=== PATIENT | male | born 1970 | race Caucasian/White ===

== ENCOUNTER → 2017-06-08 | Outpatient (CLI) | payer BC ==
[~2017-06-08] VITALS: Ht 188 cm; Wt 77.2 kg
[~2017-06-08] MED LIST: Ativan PO; LOPRESSOR50 MG PO; PRINIVIL20 MG PO; PROVENTIL,2.5 MG/3 M IH; TOPROL XL100 MG PO; predniSONE PO
== END | disposition home or self-care (01) ==
LOC: OPR 07:23 → EDSTATUS 08:00
PROC: 0TB03ZX Excision of Right Kidney, Percutaneous Approach, Diagnostic (ICD-10-PCS; principal; 2017-06-08)
DX: C64.1 Malignant neoplasm of right kidney, except renal pelvis (principal); Z85.118 Personal history of other malignant neoplasm of bronchus and lung; I10 Essential (primary) hypertension; F17.200 Nicotine dependence, unspecified, uncomplicated
CPT/HCPCS: 74177; 77012; 88305; 88341 TC; 88342 TC; J3010

== ENCOUNTER 2017-07-05 21:54 | Inpatient (IN) | payer BC ==
[~2017-07-05] VITALS: Ht 188 cm; Wt 79.5 kg
[~2017-07-05 21:54] MED LIST changes: +BAYER BACK & B1 EACH PO
[2017-07-06 08:28] VITALS: BP 114/68
[2017-07-06] MEDS ORDERED: DOCUSATE SODIU100 MG PO (13:09)
[2017-07-06] MEDS ORDERED: ENDOCET 5-3251 EACH PO (13:09)
[2017-07-06 19:31] LABS: HEMATOCRIT 39.2 % (38.0-50.0); MCV 102.9 FL (86-99)
[2017-07-06 20:50] VITALS: BP 101/51
[2017-07-07] VITALS (7 sets, daily range): BP systolic 98–147; BP diastolic 50–85
[2017-07-07 05:07] LABS: MCH 35.9 PG (29.0-34.0); MCHC 34.3 G/DL (30.0-36.0); MCV 104.5 FL (86-99); MEAN PLAT.VOLUME 10.8 uM^3 (9.0-12.4); PLATELET COUNT 157 K/uL (156-360); RBC DIS.WIDTH-CV 12.4 % (11.8-14.6); RBC DIS.WIDTH-SD 47.8 % (39-53); WHITE BLOOD COUNT 11.1 K/uL (4.1-10.2)
[2017-07-07 05:23] LABS: RED BLOOD COUNT 3.54 M/uL (4.00-5.50)
[2017-07-07 05:36] LABS: ANION GAP 6 MEQ/L (2-14); CHLORIDE 102 MEQ/L (99-109); GLUCOSE 111 mg/dL (70-99); POTASSIUM 4.6 MEQ/L (3.7-5.4); SAMPLE HEMOLYSIS CHECK 0; SAMPLE ICTERIC CHECK 0; SAMPLE LIPEMIA CHECK 0; SODIUM 135 MEQ/L (136-147); UREA NITROGEN (BUN) 11 mg/dL (9-23)
[2017-07-07 05:40] LABS: GFR ESTIMATE (CALCULATED) 58 mL/min/
[2017-07-08 05:08] VITALS: BP 179/83
[2017-07-08 07:54] LABS: ANION GAP 9 MEQ/L (2-14); CHLORIDE 104 MEQ/L (99-109); GFR ESTIMATE (CALCULATED) > 59 mL/min/; GLUCOSE 98 mg/dL (70-99); POTASSIUM 4.1 MEQ/L (3.7-5.4); SAMPLE HEMOLYSIS CHECK 0; SAMPLE ICTERIC CHECK 0; SAMPLE LIPEMIA CHECK 0; SODIUM 139 MEQ/L (136-147); UREA NITROGEN (BUN) 8 mg/dL (9-23)
[2017-07-08] MEDS ORDERED: LISINOPRIL10 MG PO (07:58)
[2017-07-08] MEDS ORDERED: TAMSULOSIN HCL0.4 MG PO (07:58)
[2017-07-08 08:00] VITALS: BP 158/78
[2017-07-08 12:33] VITALS: BP 177/95
[2017-07-08 17:15] VITALS: BP 164/83
[2017-07-08 21:03] VITALS: BP 194/99
[2017-07-09 00:34] VITALS: BP 140/74
[2017-07-09 01:22] VITALS: BP 171/98
[2017-07-09 07:50] VITALS: BP 198/99
[2017-07-09 15:45] VITALS: BP 174/96
[2017-07-09 19:55] VITALS: BP 177/88
[2017-07-10 00:36] VITALS: BP 138/71
[2017-07-10 08:02] VITALS: BP 120/72
[2017-07-10 10:01] LABS: ANION GAP 9 MEQ/L (2-14); CHLORIDE 103 MEQ/L (99-109); GFR ESTIMATE (CALCULATED) > 59 mL/min/; GLUCOSE 133 mg/dL (70-99); SAMPLE HEMOLYSIS CHECK 0; SAMPLE ICTERIC CHECK 0; SAMPLE LIPEMIA CHECK 0; SODIUM 138 MEQ/L (136-147); UREA NITROGEN (BUN) 10 mg/dL (9-23)
== END 2017-07-10 15:00 | disposition home or self-care (01) | DRG 658 ==
LOC: ENRESERV 21:54 → 2SOUTH 07-06 07:41 → ENRESERV 07-06 15:27 → 2SOUTH 07-06 15:54 → ENRESERV 07-06 19:04 → 4EAST 07-06 20:31 → CANRESERV 07-08 16:13 → ENRESERV 07-08 16:13 → 5EAST 07-08 20:42
PROVIDERS: Urology
PROC: 0TT00ZZ Resection of Right Kidney, Open Approach (ICD-10-PCS; principal; 2017-07-06)
DX: C64.1 Malignant neoplasm of right kidney, except renal pelvis (principal); F17.210 Nicotine dependence, cigarettes, uncomplicated; I10 Essential (primary) hypertension; J44.9 Chronic obstructive pulmonary disease, unspecified; K82.8 Other specified diseases of gallbladder; F10.10 Alcohol abuse, uncomplicated; Z85.118 Personal history of other malignant neoplasm of bronchus and lung; Z80.1 Family history of malignant neoplasm of trachea, bronchus and lung; Z80.8 Family history of malignant neoplasm of other organs or systems; Z82.49 Family history of ischemic heart disease and other diseases of the circulatory system
CPT/HCPCS: 71010; 80048; 83735; 85014; 85018; 85027; 86850; 86900; 86901; 88307; 93005; 94640; 94640 76; 94799; G0103; J0131; J0330; J0690; J1170; J1644; J1885; J2405; J2710; J3010; J7120; P9047